=== PATIENT | female | born 1985 | race Caucasian/White ===

== ENCOUNTER 2018-01-23 14:08 | Emergency (ER) | payer OTHER ==
[~2018-01-23] VITALS: Ht 160 cm; Wt 52.2 kg
[~2018-01-23 14:08] MED LIST: ALLEGRA ALLERGY60 MG; BACTRIM DS TAB1 EACH PO; BENTYL10 MG PO; BIRTH CONTROL; NORCO 5-325 TA1 EACH PO; OMEPRAZOLE40 MG; PREDNISONE 10 M10 M1 PO; PROAIR HFA8.5 GM IH; PYRIDIUM200 MG PO; TESSALON200 MG PO; ZOFRAN ODT4 MG PO; ZPAK PO; [UNRECOGNIZED DRUG - OTHER]
[2018-01-23 14:54] LABS: ABSOLUTE BASOPHILS 0.1 thou/uL (0.0-0.2); ABSOLUTE EOSINOPHILS 0.3 thou/uL (0.0-0.7); ABSOLUTE LYMPHOCYTES 2.8 thou/uL (0.8-5.3); ABSOLUTE MONOCYTES 0.9 thou/uL (0.0-1.2); ABSOLUTE NEUTROPHILS 5.9 thou/uL (1.6-8.1); BASOPHILS 0.8 %; EOSINOPHILS 2.8 %; HEMOGLOBIN 13.4 gm/dL (12.0-15.0); LYMPHOCYTES 28.3 %; MCH 29.3 pg (26.0-34.0); MCHC 33.4 g/dL (28.0-37.0); MCV 87.7 fL (80.0-100.0); MONOCYTES 8.7 %; MPV 7.3 fl. (7.2-11.1); NUCLEATED RBCS 0 /100WBC; PLATELET COUNT* 320 thou/uL (150-400); POLYS 59.4 %; RBC 4.56 mil/uL (4.20-5.00); RDW-CV 15.1 % (10.5-14.5); WBC 9.9 thou/uL (4.0-11.0)
[2018-01-23 15:01] LABS: ANION GAP 7 mmol/L (7-16); BUN 7 mg/dL (7-18); CALCIUM 9.1 mg/dL (8.5-10.1); CHLORIDE 105 mmol/L (98-107); CO2 27 mmol/L (21-32); CREATININE 0.7 mg/dL (0.6-1.3); GLUCOSE 97 mg/dL (70-99); POTASSIUM 3.7 mmol/L (3.5-5.1); SODIUM 139 mmol/L (136-145)
[2018-01-23 15:15] LABS: ALBUMIN 3.7 g/dL (3.4-5.0); ALKALINE PHOSPHATASE 80 U/L (46-116); NT-PRO BRAIN NAT PEPTIDE 29 pg/mL (<300); SGOT 19 U/L (15-37); SGPT 19 U/L (30-65); TOTAL BILIRUBIN 0.2 mg/dL (<0.1-1.0); TOTAL PROTEIN 7.6 g/dL (6.4-8.2); TROPONIN-I LEVEL <0.06 ng/mL (<0.06)
[2018-01-23 15:41] LABS: INFLUENZA A ANTIGEN None Detected (None Detect); INFLUENZA B ANTIGEN None Detected (None Detect)
[2018-01-23] MEDS ORDERED: ZPAK PO (16:57)
[2018-01-23] MEDS ORDERED: VENTOLIN HFA 1818 GM INH (16:57)
[2018-01-23] MEDS ORDERED: MEDROLDOSEPACK PO (16:57)
[2018-01-23 17:10] VITALS: BP 114/73
--- NOTE | 2018-01-24 10:16 | EKG ---
[place] [address] ELECTROCARDIOGRAM REPORT Name: DIVINE BREWER Room: [facility]#: [id number] Admission: 01/23/18 Attend Phys: Discharge: 01/23/18 Date of : 83 Report #: [id number] THIS REPORT FOR: //name// [facility] ED Test Date: 2018-01-23 Test Time: 14:40:10 Pat Name: DIVINE BREWER Department: Room: Gender: F Inspector Filter Tip: Ajit HICKMAN : 1985 Requested By: Amberly Bustamante Order Number: [id number] MD: Noah Chao Measurements Intervals Parks Rate: 84 P: 39 AK: 105 QRS: -7 QRSD: 95 T: 38 QT: 365 QTc: 432 Interpretive Statements Sinus rhythm Short AK interval Compared to ECG 04/01/2012 10:37:21 Short AK interval now present Sinus tachycardia no longer present T-wave abnormality no longer present Electronically Signed On 01-24-2018 10:16:06 CDT by Noah Chao [email or web address] <ELECTRONICALLY SIGNED> By: Noah Chao MD, [facility] 01/24/18 1016 1440 1440 Noah Chao MD, [facility] /EPI
== END 2018-01-23 17:11 | disposition home or self-care (01) ==
LOC: M.ERS 14:08
PROVIDERS: Nurse Practitioner Family
DX: J18.9 Pneumonia, unspecified organism (principal); R91.1 Solitary pulmonary nodule; K21.9 Gastro-esophageal reflux disease without esophagitis; F17.210 Nicotine dependence, cigarettes, uncomplicated; Z90.49 Acquired absence of other specified parts of digestive tract; R11.2 Nausea with vomiting, unspecified

== ENCOUNTER 2018-06-25 07:33 | Emergency (ER) | payer BC ==
[~2018-06-25] VITALS: Ht 160 cm; Wt 51.3 kg
[~2018-06-25 07:33] MED LIST changes: +MEDROLDOSEPACK PO; +VENTOLIN HFA 1818 GM INH
[2018-06-25] MEDS ORDERED: PRENATAL MULTI1 EAC4 PO (07:46)
[2018-06-25 08:09] LABS: ABSOLUTE EOSINOPHILS 0.2 thou/uL (0.0-0.7); ABSOLUTE LYMPHOCYTES 1.6 thou/uL (0.8-5.3); ABSOLUTE MONOCYTES 0.4 thou/uL (0.0-1.2); ABSOLUTE NEUTROPHILS 4.5 thou/uL (1.6-8.1); BASOPHILS 0.7 %; EOSINOPHILS 2.3 %; HEMOGLOBIN 12.2 gm/dL (12.0-15.0); LYMPHOCYTES 23.6 %; MCH 27.6 pg (26.0-34.0); MCHC 33.1 g/dL (28.0-37.0); MCV 83.5 fL (80.0-100.0); MONOCYTES 6.1 %; MPV 7.1 fl. (7.2-11.1); NUCLEATED RBCS 0 /100WBC; PLATELET COUNT* 314 thou/uL (150-400); POLYS 67.3 %; RBC 4.43 mil/uL (4.20-5.00); RDW-CV 15.8 % (10.5-14.5); WBC 6.7 thou/uL (4.0-11.0)
[2018-06-25 08:21] LABS: ALBUMIN 3.8 g/dL (3.4-5.0); CALCIUM 8.7 mg/dL (8.5-10.1); CREATININE 0.7 mg/dL (0.6-1.3); POTASSIUM 3.4 mmol/L (3.5-5.1); TOTAL BILIRUBIN 0.5 mg/dL (<0.1-1.0); TOTAL PROTEIN 7.6 g/dL (6.4-8.2)
[2018-06-25 08:29] LABS: INFLUENZA A ANTIGEN None Detected (None Detect); INFLUENZA B ANTIGEN None Detected (None Detect)
[2018-06-25 09:34] LABS: URINE BILIRUBIN NEGATIVE (Negative); URINE BLOOD NEGATIVE (Negative); URINE CLARITY CLEAR; URINE COLOR YELLOW; URINE GLUCOSE-RANDOM NEGATIVE (Negative); URINE KETONES NEGATIVE (Negative); URINE LEUKOCYTES-REFLEX TRACE (Negative); URINE NITRITE-REFLEX NEGATIVE (Negative); URINE PROTEIN NEGATIVE (Negative); URINE SPECIFIC GRAVITY <= 1.005 (1.005-1.030); URINE UROBILINOGEN 0.2 E.U./dl (0.2-1.0)
[2018-06-25] MEDS ORDERED: PHENERGAN 25 MG25 M1 PO (09:34)
[2018-06-25 10:03] VITALS: BP 125/75
== END 2018-06-25 10:04 | disposition home or self-care (01) ==
LOC: M.ERS 07:33
PROVIDERS: Family Medicine
DX: O21.8 Other vomiting complicating pregnancy (principal); O99.331 Smoking (tobacco) complicating pregnancy, first trimester; O99.611 Diseases of the digestive system complicating pregnancy, first trimester; Z90.49 Acquired absence of other specified parts of digestive tract; Z3A.11 11 weeks gestation of pregnancy

== ENCOUNTER 2019-04-28 15:30 | Emergency (ER) | payer BC ==
[~2019-04-28] VITALS: Ht 162.6 cm; Wt 54.4 kg
[~2019-04-28 15:30] MED LIST changes: +PHENERGAN 25 MG25 M1 PO; +PRENATAL MULTI1 EAC4 PO
[2019-04-28 16:31] LABS: URINE BILIRUBIN NEGATIVE (Negative); URINE BLOOD NEGATIVE (Negative); URINE CLARITY CLEAR; URINE COLOR YELLOW; URINE GLUCOSE-RANDOM NEGATIVE (Negative); URINE KETONES NEGATIVE (Negative); URINE LEUKOCYTES NEGATIVE (Negative); URINE NITRITE NEGATIVE (Negative); URINE PROTEIN NEGATIVE (Negative); URINE SPECIFIC GRAVITY <= 1.005 (1.005-1.030); URINE UROBILINOGEN 0.2 E.U./dl (0.2-1.0)
[2019-04-28 16:35] LABS: HEMATOCRIT 41.4 % (37.0-47.0); HEMOGLOBIN 14.1 gm/dL (12.0-15.0); MCH 31.5 pg (26.0-34.0); MCHC 34.1 g/dL (28.0-37.0); MCV 92.6 fL (80.0-100.0); MPV 7.5 fl. (7.2-11.1); RBC 4.47 mil/uL (4.20-5.00); RDW-CV 14.6 % (10.5-14.5); WBC 12.9 thou/uL (4.0-11.0)
[2019-04-28 16:38] LABS: AMP/METHAMP Negative (Negative); BARBITURATES Negative (Negative); BENZODIAZEPINES Negative (Negative); COCAINE Negative (Negative); METHADONE Negative (Negative); OPIATES Negative (Negative); PCP Negative (Negative); THC Negative (Negative)
[2019-04-28 16:42] LABS: ANION GAP 12 mmol/L (7-16); BUN 7 mg/dL (7-18); CALCIUM 8.5 mg/dL (8.5-10.1); CHLORIDE 103 mmol/L (98-107); CO2 26 mmol/L (21-32); CREATININE 0.7 mg/dL (0.6-1.3); GLUCOSE 97 mg/dL (70-99); POTASSIUM 3.3 mmol/L (3.5-5.1); SODIUM 141 mmol/L (136-145)
[2019-04-28 16:47] LABS: ALBUMIN 3.2 g/dL (3.4-5.0); ALKALINE PHOSPHATASE 103 U/L (46-116); SGOT 20 U/L (15-37); SGPT 29 U/L (30-65); TOTAL BILIRUBIN < 0.1 mg/dL (<0.1-1.0); TOTAL PROTEIN 7.8 g/dL (6.4-8.2)
[2019-04-28 16:52] LABS: ACETAMINOPHEN < 2 ug/mL (10-30); ALCOHOL 252 mg/dL (<10); SALICYLATE 4.9 mg/dL (2.8-20.0)
[2019-04-28 19:31] VITALS: BP 113/73
== END 2019-04-28 19:31 | disposition home or self-care (01) ==
LOC: M.ERS 15:30
PROVIDERS: Personal Emergency Response Attendant
DX: R45.851 Suicidal ideations (principal); K21.9 Gastro-esophageal reflux disease without esophagitis; F17.210 Nicotine dependence, cigarettes, uncomplicated; Z79.899 Other long term (current) drug therapy; Z90.49 Acquired absence of other specified parts of digestive tract

== ENCOUNTER 2019-11-30 17:38 | Emergency (ER) | payer BC ==
[~2019-11-30] VITALS: Ht 162.6 cm; Wt 61.2 kg
[2019-11-30] MEDS ORDERED: LORAZEPAM 1 MG T1 MG PO (17:48)
[2019-11-30 18:06] LABS: URINE BILIRUBIN NEGATIVE (Negative); URINE BLOOD TRACE (Negative); URINE CLARITY CLEAR; URINE COLOR YELLOW; URINE GLUCOSE-RANDOM NEGATIVE (Negative); URINE KETONES NEGATIVE (Negative); URINE LEUKOCYTES-REFLEX NEGATIVE (Negative); URINE NITRITE-REFLEX NEGATIVE (Negative); URINE PROTEIN NEGATIVE (Negative); URINE UROBILINOGEN 0.2 E.U./dl (0.2-1.0)
[2019-11-30 18:11] LABS: ABSOLUTE BASOPHILS 0.1 thou/uL (0.0-0.2); ABSOLUTE EOSINOPHILS 0.1 thou/uL (0.0-0.7); ABSOLUTE LYMPHOCYTES 3.4 thou/uL (0.8-5.3); ABSOLUTE MONOCYTES 0.3 thou/uL (0.0-1.2); ABSOLUTE NEUTROPHILS 5.2 thou/uL (1.6-8.1); BASOPHILS 0.6 %; EOSINOPHILS 1.3 %; HEMATOCRIT 43.5 % (37.0-47.0); HEMOGLOBIN 15.1 gm/dL (12.0-15.0); LYMPHOCYTES 37.6 %; MCH 31.7 pg (26.0-34.0); MCHC 34.7 g/dL (28.0-37.0); MCV 91.3 fL (80.0-100.0); MONOCYTES 3.4 %; MPV 7.3 fl. (7.2-11.1); NUCLEATED RBCS 0 /100WBC; PLATELET COUNT* 338 thou/uL (150-400); POLYS 57.1 %; RBC 4.76 mil/uL (4.20-5.00); RDW-CV 14.6 % (10.5-14.5); WBC 9.1 thou/uL (4.0-11.0)
[2019-11-30 18:16] LABS: AMP/METHAMP Negative (Negative); BARBITURATES Negative (Negative); BENZODIAZEPINES Negative (Negative); COCAINE Negative (Negative); METHADONE Negative (Negative); OPIATES Negative (Negative); PCP Negative (Negative); THC Negative (Negative)
[2019-11-30 18:21] LABS: CALCIUM 8.4 mg/dL (8.5-10.1); CREATININE 0.7 mg/dL (0.6-1.3); POTASSIUM 3.5 mmol/L (3.5-5.1)
[2019-11-30 18:25] LABS: TOTAL BILIRUBIN 0.2 mg/dL (<0.1-1.0); TOTAL PROTEIN 8.3 g/dL (6.4-8.2)
[2019-11-30 18:35] LABS: ACETAMINOPHEN < 2 ug/mL (10-30); ALCOHOL 287 mg/dL (<10); SALICYLATE 3.6 mg/dL (2.8-20.0)
[2019-11-30 22:00] LABS: AMP/METHAMP Negative (Negative); BARBITURATES Negative (Negative); BENZODIAZEPINES Negative (Negative); COCAINE Negative (Negative); METHADONE Negative (Negative); OPIATES Negative (Negative); PCP Negative (Negative); THC Negative (Negative)
[2019-12-01 10:37] VITALS: BP 128/69
== END 2019-12-01 10:38 | disposition home or self-care (01) ==
LOC: M.ERS 17:38
PROVIDERS: Emergency Medicine Emergency Medical Services; Personal Emergency Response Attendant
DX: T42.4X2A Poisoning by benzodiazepines, intentional self-harm, initial encounter (principal); F10.121 Alcohol abuse with intoxication delirium; F32.9 Major depressive disorder, single episode, unspecified; R41.82 Altered mental status, unspecified; K21.9 Gastro-esophageal reflux disease without esophagitis; F17.210 Nicotine dependence, cigarettes, uncomplicated; Z90.49 Acquired absence of other specified parts of digestive tract; Y90.8 Blood alcohol level of 240 mg/100 ml or more; Y92.89 Other specified places as the place of occurrence of the external cause